=== PATIENT | male | born 1995 | race American Indian/Alaskan Native ===

== ENCOUNTER 2020-08-22 17:43 | Emergency (ER) | payer SELFPAY ==
[2020-08-22 17:58] VITALS: BP 114/57
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
== END 2020-08-22 20:40 | disposition home or self-care (01) ==
LOC: ED 17:43
DX: M25.512 Pain in left shoulder (principal); V87.7XXA Person injured in collision between other specified motor vehicles (traffic), initial encounter; Y93.89 Activity, other specified; Y92.488 Other paved roadways as the place of occurrence of the external cause; Y99.8 Other external cause status
CPT/HCPCS: 99283